=== PATIENT | female | born 1970 | race Caucasian/White ===

== ENCOUNTER → 2017-10-08 | Outpatient (CLI) | payer OTHER ==
[~2017-10-08] MED LIST: BIRTH CONTROL PILLS; CEPH500 PO; SULTRIDS PO
== END ==
LOC: LAB 13:44
DX: N75.1 Abscess of Bartholin's gland (principal)
CPT/HCPCS: 87070; 87205

== ENCOUNTER → 2018-01-22 | Outpatient (CLI) | payer OTHER | LOC: LAB SHORT 12:04 → LAB 12:04 | DX: L02.419 Cutaneous abscess of limb, unspecified (principal); Z86.14 Personal history of Methicillin resistant Staphylococcus aureus infection | CPT/HCPCS: 87070; 87075; 87205 ==

== ENCOUNTER → 2018-10-04 | Outpatient (CLI) | payer OTHER | LOC: PLD 13:41 → LAB SHORT 13:41 | DX: N75.0 Cyst of Bartholin's gland (principal) | CPT/HCPCS: 88304 ==

== ENCOUNTER → 2018-10-04 | Outpatient (CLI) | payer OTHER | END | disposition home or self-care (01) | LOC: LAB 10:06 → LAB SHORT 10:06 | DX: N75.0 Cyst of Bartholin's gland (principal) | CPT/HCPCS: 87070; 87075; 87205 ==

== ENCOUNTER → 2019-03-21 | Outpatient (CLI) | payer OTHER ==
[~2019-03-21] MED LIST changes: +DICL25ER; +GABA800; +HYDPAM50; +MIRENA1 EACH; +Prozac20 MG; +TRAZ50
[2019-03-21 14:03] LABS: Candida species (DNA Probe) Positive (NEGATIVE); G. vaginalis (DNA Probe) Positive (NEGATIVE); T. vaginalis (DNA Probe) Negative (NEGATIVE)
== END | disposition home or self-care (01) ==
LOC: LAB SHORT 11:17 → LAB 11:17
PROVIDERS: Obstetrics & Gynecology
DX: N76.0 Acute vaginitis (principal)
CPT/HCPCS: 87480; 87510; 87660

== ENCOUNTER → 2019-05-06 | Outpatient (CLI) | payer OTHER ==
[2019-05-08 15:07] LABS: HPV 16 Negative (Negative); HPV 18 Negative (Negative); HPV OTHER HR TYPES Negative (Negative)
== END | disposition home or self-care (01) ==
LOC: LAB SHORT 13:00 → LAB 13:00
PROVIDERS: Obstetrics & Gynecology
DX: Z01.419 Encounter for gynecological examination (general) (routine) without abnormal findings (principal)
CPT/HCPCS: 87624; G0123

== ENCOUNTER 2025-05-22 12:16 | Emergency (ER) | payer OTHER ==
[~2025-05-22] VITALS: Ht 160 cm; Wt 60.8 kg
[2025-05-22] MEDS ORDERED: Tetracaine HCl/Pf 0.5% Opth Soln 4 ml BOTHEYES ONE (13:00)
[2025-05-22] MEDS ORDERED: Fluorescein Sod 1MG Opth Strips RIGHTEYE ONE (13:00)
[2025-05-22] MEDS ORDERED: Erythromycin 0.5% Opth Oint 1 gm RIGHTEYE ONE (13:25)
[2025-05-22 13:57] VITALS: BP 123/92
== END 2025-05-22 13:56 | disposition home or self-care (01) ==
LOC: ER 12:16
DX: S01.111A Laceration without foreign body of right eyelid and periocular area, initial encounter (principal); W31.1XXA Contact with metalworking machines, initial encounter; F17.200 Nicotine dependence, unspecified, uncomplicated
CPT/HCPCS: 12011; 90715; 99283-25; A9270